=== PATIENT | female | born 1965 | race Caucasian/White ===

== ENCOUNTER 2022-10-07 09:09 | Outpatient (CLI) | payer OTHER, SELFPAY ==
--- NOTE | 2022-10-07 09:15 | CRLHL7_ITS ---
For Patients: As a result of the Century Cures Act, medical imaging exams and procedure reports are released immediately into your electronic medical record. You may view this report before your referring provider. If you have questions, please contact your health care provider. INDICATION: Chronic progressive difficulty with swallowing particularly solid foods such as bread. TECHNIQUE : Single and double-contrast esophagram. FINDINGS: No esophageal stricture, mass, or obstruction. No hiatal hernia. Reflux could not be elicited in the upright or recumbent position. No reflux could be elicited in the decubitus positions without and with Valsalva maneuvers. There were a few episodes of limited minimal diminished esophageal peristalsis suggesting early presbyesophagus. These findings were discussed briefly with the patient. 3 minutes 3 seconds fluoroscopy time utilized. IMPRESSION: Few intermittent episodes of limited minimally diminished esophageal peristalsis. The examination is otherwise negative. Dictated by Michael Prajapati MD @ 10/07/2022 10:55:19 AM (Electronically Signed)
== END 2022-10-07 09:10 | disposition home or self-care (01) ==
LOC: RAD 09:10
PROVIDERS: PCP Family Medicine; Visit Provider Internal Medicine Gastroenterology
DX: R13.10 Dysphagia, unspecified (principal)
CPT/HCPCS: 74221

== ENCOUNTER 2023-05-17 10:00 | Outpatient (RCR) | payer OTHER, SELFPAY | END 2023-05-24 11:18 | disposition home or self-care (01) | PROVIDERS: PCP Family Medicine | DX: M17.12 Unilateral primary osteoarthritis, left knee (principal); M62.50 Muscle wasting and atrophy, not elsewhere classified, unspecified site; M25.562 Pain in left knee; R53.1 Weakness; Z51.89 Encounter for other specified aftercare | CPT/HCPCS: 97110; 97140; 97161 ==

== ENCOUNTER 2024-10-09 09:30 | Outpatient (RCR) | payer BC, SELFPAY | END 2024-11-13 15:28 | disposition home or self-care (01) | PROVIDERS: PCP Family Medicine; Visit Provider Family Medicine | DX: M54.2 Cervicalgia (principal); M25.511 Pain in right shoulder; M75.41 Impingement syndrome of right shoulder; Z51.89 Encounter for other specified aftercare | CPT/HCPCS: 97110; 97140; 97161 ==